=== PATIENT | male | born 1945 | race Caucasian/White ===

== ENCOUNTER 2017-01-22 09:13 | Emergency (ER) | payer MEDICARE ==
[2017-01-22 09:57] VITALS: BP 165/82
--- NOTE | 2017-01-22 09:57 | UC ---
Respiratory Complaint HPI - HPI Summary HPI Summary: cough and congestion for 4 days. no fever. right chest pain with cough. no sob at rest. - History of Current Complaint Chief Complaint: UCRespiratory Stated Complaint: COUGH,CHEST CONGESTION,BODY ACHES Time Seen by Provider: 01/22/17 09:31 Hx Obtained From: Patient Onset/Duration: Gradual Onset, Lasting Days Timing: Constant Severity Initially: Mild Severity Currently: Moderate Character: Sputum Description: - green sputum. Associated Signs And Symptoms: Positive: Sinus Discomfort - she started with ST on day one.. Negative: Dyspnea, Fever, Chills, Wheezing, Hemoptysis, Calf Pain , Calf Swelling, Edema, URI, Nasal Congestion, Hoarseness - Risk Factors Pulmonary Embolism Risk Factors: Negative Cardiac Risk Factors: Negative Pseudomonas Risk Factors: Negative Tuberculosis Risk Factors: Negative - Allergies/Home Medications Allergies/Adverse Reactions: Allergies Allergy/AdvReac Type Severity Reaction Status Date / Time No Known Allergies Allergy Verified 01/22/17 09:38 Home Medications: Home Medications guaiFENesin ER TAB [Mucinex*] 600 mg PO BID PRN 01/22/17 [History Confirmed ] PMH/Surg Hx/FS Hx/Imm Hx Endocrine History Of: Denies: Diabetes, Thyroid Disease Cardiovascular History Of: Reports: Hypertension Denies: Cardiac Disorders Respiratory History Of: Reports: Bronchitis Denies: COPD, Asthma GI/ History Of: Denies: Ulcer - Surgical History Surgical History: Yes Surgery Procedure, Year, and Place: Left ankle pin in place,. prostate CA seeds ,. Brain gamma knife - Family History Known Family History: Positive: Unknown Negative: Diabetes, Respiratory Disease - Social History Lives: With Family Alcohol Use: Rare Substance Use Type: None Smoking Status (MU): Former Smoker Have You Smoked in the Last Year: No - Immunization History Most Recent Influenza Vaccination: June 2016 Most Recent Pneumonia Vaccination: June 2016 Hx Tetanus, Diphtheria Vaccination: Yes Vaccination Up to Date: Yes Review of Systems All Other Systems Reviewed And Are Negative: Yes Physical Exam Triage Information Reviewed: Yes Appearance: Well-Appearing, No Pain Distress, Well-Nourished Vital Signs: Initial Vital Signs Temp 97.7 F 01/22/17 09:32 Pulse 76 01/22/17 09:32 Resp 16 01/22/17 09:32 BP 165/82 01/22/17 09:32 Pulse Ox 100 01/22/17 09:32 Vital Signs Reviewed: Yes Eye Exam: Normal Eyes: Positive: Conjunctiva Clear. Negative: Conjunctiva Inflamed ENT Exam: Normal ENT: Positive: Normal ENT inspection, Hearing grossly normal, Pharynx normal. Negative: Pharyngeal erythema, Nasal congestion, Nasal drainage, TMs normal, TM bulging, TM dull, TM red, Tonsillar swelling, Tonsillar exudate, Trismus Neck exam: Normal Neck: Positive: Supple, Nontender, No Lymphadenopathy. Negative: Nuchal Rigidity, Tenderness @, Enlarged Nodes @ Respiratory Exam: Normal Respiratory: Positive: Chest non-tender, Lungs clear, Normal breath sounds, No respiratory distress, No accessory muscle use. Negative: Respiratory distress, Decreased breath sounds, Accessory muscle use, Crackles, Rhonchi, Stridor Cardiovascular Exam: Normal Cardiovascular: Positive: RRR, No Murmur, Pulses Normal Abdominal Exam: Normal Abdomen Description: Positive: Nontender, No Organomegaly Musculoskeletal Exam: Normal Musculoskeletal: Positive: Strength Intact, ROM Intact, No Edema Neurological Exam: Normal Neurological: Positive: Alert, Muscle Tone Normal, Fatigued Psychological Exam: Normal Psychological: Positive: Normal Response To Family Skin Exam: Normal Skin: Positive: rashes UC Diagnostic Evaluation - Laboratory O2 Sat by Pulse Oximetry: 100 Respiratory Course/Dx - Course Course Of Treatment: cough. Productive. he will start cough suppressants and z pack on day 10 if needed. - Differential Dx/Diagnosis Differential Diagnosis/HQI/PQRI: Airway Obstruction, Foreign Body, Aspiration, Asthma, Bronchitis, CHF, Pulmonary Edema, Exacerbation Of COPD, Influenza, Laryngitis, Lower Resp Infection, MRSA, Pneumothorax, Pulmonary Embolism, Sinusitis Provider Diagnoses: acute bronchitis. Discharge - Discharge Plan Condition: Good Disposition: HOME Prescriptions: Acetaminop/Codeine 30 MG TAB* [Tylenol/Codeine 30 MG TAB*] 1 tab PO Q8H PRN #20 tab MDD 3 PRN Reason: Cough Azithromyxin JEANA (NF) [Z-Jeana (Zithromax) 250 mg tabs #6] 2 tab PO .TODAY, THEN 1 DAILY #6 tab Benzonatate CAP* [Tessalon 100 MG CAP*] 100 mg PO BID PRN #20 cap PRN Reason: Cough Patient Education Materials: Acute Bronchitis (ED) Referrals: Hardeep Morales MD [Primary Care Provider] - If Needed
== END 2017-01-22 10:05 | disposition home or self-care (01) ==
LOC: UCCORT 09:13
DX: J20.9 Acute bronchitis, unspecified (principal); Z87.891 Personal history of nicotine dependence
CPT/HCPCS: 99212; G0463

== ENCOUNTER 2018-05-28 09:53 | Emergency (ER) | payer MEDICARE ==
[2018-05-28 10:22] VITALS: BP 165/95
--- NOTE | 2018-05-28 10:46 | UC ---
Back Pain HPI - HPI Summary HPI Summary: left lower back pain x 3 days pain is sharp / shooting , radiating to left leg/ thigh increase pain with sitting , better, with standing and walking no fever, no chills, , no urinary sx - History of Current Complaint Chief Complaint: UCBackPain Stated Complaint: BACK PAIN *3DAYS Time Seen by Provider: 05/28/18 10:20 Hx Obtained From: Patient Onset/Duration: Gradual Onset, Lasting Days - 3, Still Present Timing: Constant, Lasting Days - 3 Severity Initially: Moderate Severity Currently: Moderate Pain Intensity: 4 Pain Scale Used: 0-10 Numeric Back Pain: Is Discrete @ - left lower back Character: Sharp Aggravating Factor(s): Bending, Other - sitting Alleviating Factor(s): Rest, Other - walking Associated Signs And Symptoms: Negative: Swelling, Redness, Bruising, Fever, Weakness, Numbness, Tingling, Flank Pain, Weight Loss - Allergies/Home Medications Allergies/Adverse Reactions: Allergies Allergy/AdvReac Type Severity Reaction Status Date / Time No Known Allergies Allergy Verified 05/28/18 10:22 Home Medications: Home Medications Acetaminophen/Diphenhydramine [Tylenol Pm Ex-Strength Caplet] 2 each PO ONCE PRN 05/28/18 [History Confirmed 05/28/18] PMH/Surg Hx/FS Hx/Imm Hx - Additional Past Medical History Additional PMH: cancer of prostate 2003, brain Cardiovascular History: Hypertension - Surgical History Surgical History: Yes Surgery Procedure, Year, and Place: Left ankle pin in place,. prostate CA seeds ,. Brain gamma knife - Family History Known Family History: Positive: Unknown Negative: Diabetes, Respiratory Disease - Social History Alcohol Use: Rare Substance Use Type: None Smoking Status (MU): Former Smoker Type: Pipe Length of Time of Smoking/Using Tobacco: approx 10 yrs Have You Smoked in the Last Year: No When Did the Patient Quit Smoking/Using Tobacco: 1970s - Immunization History Most Recent Influenza Vaccination: FALL 2014 Most Recent Pneumonia Vaccination: FALL 2014 Hx Tetanus, Diphtheria Vaccination: Yes Vaccination Up to Date: Yes Review of Systems Constitutional: Negative Skin: Negative Eyes: Negative ENT: Negative Respiratory: Negative Cardiovascular: Negative Is Patient Immunocompromised?: No All Other Systems Reviewed And Are Negative: Yes Physical Exam Triage Information Reviewed: Yes Appearance: Well-Appearing, No Pain Distress, Well-Nourished Vital Signs: Initial Vital Signs Temp 97.8 F 05/28/18 10:14 Pulse 105 05/28/18 10:14 Resp 16 05/28/18 10:14 BP 165/95 05/28/18 10:14 Pulse Ox 98 05/28/18 10:14 Eye Exam: Normal Eyes: Positive: Conjunctiva Clear ENT: Positive: Normal ENT inspection, Hearing grossly normal, Pharynx normal Neck exam: Normal Neck: Positive: Supple, Nontender, No Lymphadenopathy Respiratory: Positive: Chest non-tender, Lungs clear, Normal breath sounds Cardiovascular: Positive: RRR, No Murmur, Pulses Normal Abdominal Exam: Normal Musculoskeletal: Positive: Other: - left lower back : no erythema, no swelling, + tenderness, pain with flexion Neurological Exam: Normal Skin Exam: Normal Back Pain Course/Dx - Differential Dx/Diagnosis Provider Diagnoses: sciatica Discharge - Sign-Out/Discharge Documenting (check all that apply): Patient Departure - Discharge Plan Condition: Stable Disposition: HOME Prescriptions: Cyclobenzaprine TAB* [Flexeril 10 MG TAB*] 10 mg PO BID PRN #20 tab PRN Reason: Pain Naproxen [Naproxen 500 mg tab] 500 mg PO BID #20 tablet. Patient Education Materials: Sciatica (ED) Referrals: Hardeep Morales MD [Primary Care Provider] - - Billing Disposition and Condition Condition: STABLE Disposition: Home
== END 2018-05-28 10:39 | disposition home or self-care (01) ==
LOC: UCCORT 09:53 → EDBD 09:53 → UCCORT 10:39
DX: M54.42 Lumbago with sciatica, left side (principal); I10 Essential (primary) hypertension; Z87.891 Personal history of nicotine dependence
CPT/HCPCS: 99212; G0463

== ENCOUNTER 2018-07-30 13:18 | Emergency (ER) | payer MEDICARE ==
[2018-07-30 14:12] VITALS: BP 168/99
--- NOTE | 2018-07-30 14:16 | UC ---
Throat Pain/Nasal Anthony HPI - HPI Summary HPI Summary: 72 y/o male presents to the urgent care c/o sore throat for the past 4 days. Pain w/ swallowing is 5/10. He has not taking anything to alleviate symptoms. He is concerned w/ strep since he recently came from vacation. Pt denies fever , nasal congestion, cough, SOB, chest pain, abdominal pain, N/V/D. He has Hx of HTN, but states his BP gets elevated when he sees the doctor. - History of Current Complaint Chief Complaint: UCRespiratory Stated Complaint: THROAT,FEVER Time Seen by Provider: 07/30/18 14:11 Hx Obtained From: Patient Onset/Duration: Gradual Onset, Lasting Days - 4 days, Still Present, Worse Since - today Severity: Moderate Pain Intensity: 5 Pain Scale Used: 0-10 Numeric Cough: None Associated Signs & Symptoms: Positive: Dysphagia - Epiglottits Risk Factors Epiglottis Risk Factors: Negative - Allergies/Home Medications Allergies/Adverse Reactions: Allergies Allergy/AdvReac Type Severity Reaction Status Date / Time No Known Allergies Allergy Verified 07/30/18 14:13 Home Medications: Home Medications Losartan Potassium 100 mg PO DAILY 07/30/18 [History Confirmed 07/30/18] PMH/Surg Hx/FS Hx/Imm Hx Previously Healthy: Yes Endocrine History: Dyslipidemia Cardiovascular History: Hypertension Other Neurological History: brain tumor, sciatica - Surgical History Surgical History: Yes Surgery Procedure, Year, and Place: Left ankle pin in place,. prostate CA seeds ,. Brain gamma knife - Family History Known Family History: Positive: Diabetes Negative: Respiratory Disease - Social History Lives: With Family Alcohol Use: Rare Substance Use Type: None Smoking Status (MU): Former Smoker Type: Pipe Length of Time of Smoking/Using Tobacco: approx 10 yrs Have You Smoked in the Last Year: No When Did the Patient Quit Smoking/Using Tobacco: 1970 - Immunization History Most Recent Influenza Vaccination: FALL 2014 Most Recent Pneumonia Vaccination: FALL 2014 Hx Tetanus, Diphtheria Vaccination: Yes Vaccination Up to Date: Yes Review of Systems Constitutional: Negative Skin: Negative Eyes: Negative ENT: Sore Throat Respiratory: Negative Cardiovascular: Negative Gastrointestinal: Negative Genitourinary: Negative Motor: Negative Neurovascular: Negative Musculoskeletal: Negative Neurological: Negative Psychological: Negative Is Patient Immunocompromised?: No All Other Systems Reviewed And Are Negative: Yes Physical Exam - Summary Physical Exam Summary: VITAL SIGNS: Reviewed. GENERAL: Patient is a well developed and nourished male who is sitting comfortable in the examining table. Patient is not in any acute respiratory distress. HEAD AND FACE: No signs of trauma. No ecchymosis, hematomas or skull depressions. No sinus tenderness. EYES: PERRLA, EOMI x 2, No injected conjunctiva, no nystagmus. No photophobia. EARS: Hearing grossly intact. Ear canals and tympanic membranes are within normal limits. MOUTH: Positive pharynx with erythema, exudates, palatal petechiae. B/L tonsillar enlargement with no exudate. Uvula in midline. NECK: Supple, trachea is midline, Positive anterior cervical lymphadenopathy, no JVD, no carotid bruit, no c-spine tenderness, neck with full ROM. No meningeal signs, no Kernig's or brudzinskis signs. CHEST: Symmetric, no tenderness at palpation LUNGS: Clear to auscultation bilaterally. No wheezing or crackles. CVS: Regular rate and rhythm, S1 and S2 present, no murmurs or gallops appreciated. ABDOMEN: Soft, non-tender. No signs of distention. No rebound no guarding, and no masses palpated. Bowel sounds are normal. EXTREMITIES: FROM in all major joints, no edema, no cyanosis or clubbing. NEURO: Alert and oriented x 3. No acute neurological deficits. Speech is normal and follows commands. SKIN: Dry and warm Triage Information Reviewed: Yes Vital Signs: Initial Vital Signs Temp 99.6 F 07/30/18 14:01 Pulse 108 07/30/18 14:01 Resp 20 07/30/18 14:01 BP 168/99 07/30/18 14:01 Pulse Ox 98 07/30/18 14:01 Throat Pain/Nasal Course/Dx - Course Course Of Treatment: 72 y/o male presents to the urgent care c/o sore throat for the past 4 days. Pain w/ swallowing is 5/10. He has not taking anything to alleviate symptoms. He is concerned w/ strep since he recently came from vacation. Pt denies fever, nasal congestion, cough, SOB, chest pain, abdominal pain, N/V/D. He has Hx of HTN, but states his BP gets elevated when he sees the doctor. Hx obtained. PT w/ pharyngitis on examination.Rapid strep ordered, result: negative. Viral pharyngitis.Pt Rx ibuprofen PO to alleviates symptoms of pain and swelling. Advised on hand washing to avoid spreading. Pt advised to rest, eat well and avoid strenuous exercise. If symptoms do not improve or worsen advised to return to the urgent care or f/u with PCP for further evaluation and treatment. Pt's BP is elevated today advised to decrease salt in diet, monitor BP and f/u with PCP for further management. D/C instructions explained. Pt understood and agreed w/ plan of care. - Differential Dx/Diagnosis Differential Diagnosis/HQI/PQRI: Influenza, Laryngitis, Pharyngitis, Sinusitis, URI Provider Diagnoses: 1- Viral pharyngitis. 2- Uncontrolled HTN Discharge - Sign-Out/Discharge Documenting (check all that apply): Patient Departure - D/C home All imaging exams completed and their final reports reviewed: No Studies - Discharge Plan Condition: Stable Disposition: HOME Patient Education Materials: Pharyngitis (ED), Low-Sodium Diet (ED) Referrals: Hardeep Morales MD [Primary Care Provider] - 3 Days Additional Instructions: 1-Please take ibuprofen PO q6-8hrs prn as instructed after meals to alleviate pain and swelling. Increase fluid intake, eat well, rest and avoid strenuous exercise 2-If symptoms do not improve or worsen please return to the urgent care or f/u with your PCP in 3 days for further evaluation and treatment. 3-Your BP is elevated today. please decrease salt in your diet, monitor BP and if it continues to be elevated please f/u with your PCP for further management - Billing Disposition and Condition Condition: STABLE Disposition: Home
[2018-07-30] MEDS ORDERED: Ibuprofen TAB* 600 MG PO ONE (14:30)
--- NOTE | 2018-07-31 10:58 | UC ---
- Progress Note Progress Note: no x-ray 07/30/18 Discharge - Sign-Out/Discharge Documenting (check all that apply): Patient Departure All imaging exams completed and their final reports reviewed: No Studies - Discharge Plan Condition: Stable Disposition: HOME Patient Education Materials: Pharyngitis (ED), Low-Sodium Diet (ED) Referrals: Hardeep Morales MD [Primary Care Provider] - 3 Days Additional Instructions: 1-Please take ibuprofen PO q6-8hrs prn as instructed after meals to alleviate pain and swelling. Increase fluid intake, eat well, rest and avoid strenuous exercise 2-If symptoms do not improve or worsen please return to the urgent care or f/u with your PCP in 3 days for further evaluation and treatment. 3-Your BP is elevated today. please decrease salt in your diet, monitor BP and if it continues to be elevated please f/u with your PCP for further management - Billing Disposition and Condition Condition: STABLE Disposition: Home
== END 2018-07-30 14:45 | disposition home or self-care (01) ==
LOC: UCCORT 13:18
DX: J02.8 Acute pharyngitis due to other specified organisms (principal); I10 Essential (primary) hypertension; Z87.891 Personal history of nicotine dependence
CPT/HCPCS: 87651; 99212; A9270-GY; G0463

== ENCOUNTER 2018-08-01 08:25 | Emergency (ER) | payer MEDICARE ==
--- NOTE | 2018-08-01 09:06 | UC ---
Respiratory Complaint HPI - HPI Summary HPI Summary: The patient is a 72-year-old male that presents here with a 5 day history of sore throat. He was seen here a few days ago and had a negative strep test. The last 48 hours she has had markedly worsening symptoms including cough ,fever , chills, myalgias and headache. He was recently on a cruise. He had a flu shot 2 weeks ago. He has had pneumonia in the past. He also states that he was up every hour last night urinating. He has no dysuria. - History of Current Complaint Chief Complaint: UCRespiratory Stated Complaint: COUGH CONGESTION BODYACHES Time Seen by Provider: 08/01/18 08:56 Hx Obtained From: Patient Onset/Duration: Gradual Onset, Lasting Days Timing: Constant Severity Initially: Moderate Pain Intensity: 4 Pain Scale Used: 0-10 Numeric Character: Cough: Nonproductive Aggravating Factors: Nothing Alleviating Factors: OTC Meds Associated Signs And Symptoms: Positive: Fever, Chills, Nasal Congestion, Sinus Discomfort - Allergies/Home Medications Allergies/Adverse Reactions: Allergies Allergy/AdvReac Type Severity Reaction Status Date / Time No Known Allergies Allergy Verified 07/30/18 14:13 PMH/Surg Hx/FS Hx/Imm Hx Previously Healthy: Yes Endocrine History: Diabetes - Pre....checks his BS at home, Dyslipidemia Cardiovascular History: Hypertension Respiratory History: Pneumonia Cancer History: Prostate Cancer - Surgical History Surgical History: Yes Surgery Procedure, Year, and Place: Left ankle pin in place,. prostate CA seeds ,. Brain gamma knife - Family History Known Family History: Positive: Unknown, Hypertension, Diabetes Negative: Respiratory Disease - Social History Alcohol Use: None Substance Use Type: None Smoking Status (MU): Former Smoker Type: Pipe Length of Time of Smoking/Using Tobacco: Daily Pipe Use x 10 Years Have You Smoked in the Last Year: No When Did the Patient Quit Smoking/Using Tobacco: - Immunization History Most Recent Influenza Vaccination: FALL 2014 Most Recent Pneumonia Vaccination: FALL 2014 Hx Tetanus, Diphtheria Vaccination: Yes Vaccination Up to Date: Yes Review of Systems Constitutional: Fever, Chills, Fatigue Skin: Negative Eyes: Negative ENT: Sore Throat - better, Nasal Discharge, Sinus Congestion Respiratory: Cough Cardiovascular: Negative Gastrointestinal: Negative Genitourinary: Frequency Motor: Negative Neurovascular: Negative Musculoskeletal: Myalgia Neurological: Headache Psychological: Negative All Other Systems Reviewed And Are Negative: Yes Physical Exam Triage Information Reviewed: Yes Appearance: Well-Appearing, No Pain Distress, Well-Nourished Vital Signs: Initial Vital Signs Temp 99.3 F 08/01/18 08:38 Pulse 122 08/01/18 08:38 Resp 16 08/01/18 08:38 BP 131/81 08/01/18 08:38 Pulse Ox 97 08/01/18 08:38 Vital Signs Reviewed: Yes Eyes: Positive: Conjunctiva Clear ENT: Positive: Hearing grossly normal, Pharyngeal erythema, Nasal congestion. Negative: Nasal drainage, Tonsillar swelling, Tonsillar exudate, Trismus, Muffled voice, Hoarse voice, Sinus tenderness, Uvula midline Neck: Positive: Supple, Nontender, No Lymphadenopathy Respiratory: Positive: Lungs clear, Normal breath sounds, No respiratory distress, No accessory muscle use Cardiovascular: Positive: RRR, No Murmur, Tachycardia Abdomen Description: Positive: Nontender, No Organomegaly, Soft Bowel Sounds: Positive: Present Musculoskeletal: Positive: ROM Intact, No Edema Neurological: Positive: Alert Psychological Exam: Normal Skin Exam: Normal UC Diagnostic Evaluation - Laboratory O2 Sat by Pulse Oximetry: 97 - normal/not hypoxic Diagnostic Studies Comment: UA: +++glucose - Radiology Xray Interpretation: No Acute Changes Radiology Interpretation Completed By: Radiologist Respiratory Course/Dx - Differential Dx/Diagnosis Provider Diagnoses: acute bronchitis Discharge - Sign-Out/Discharge Documenting (check all that apply): Patient Departure All imaging exams completed and their final reports reviewed: Yes - Discharge Plan Condition: Stable Disposition: HOME Prescriptions: Azithromycin TAB* [Zithromax TAB*] 250 mg PO DAILY #6 tab Referrals: Hardeep Morales MD [Primary Care Provider] - 4 Days Additional Instructions: I suggest you check your blood sugar today recheck for new or worsening symptoms - Billing Disposition and Condition Condition: STABLE Disposition: Home
--- NOTE | 2018-08-01 09:23 | RAD ---
INDICATION: Fever and cough. COMPARISON: Comparison is made to prior study from May 30, 2015. TECHNIQUE: Dual-energy PA and lateral views of the chest were obtained. FINDINGS: The heart is within normal limits in size. Mediastinal and hilar contours appear within normal limits. The lungs are hyperinflated and clear. No pleural effusion is seen. IMPRESSION: NO EVIDENCE FOR ACTIVE CARDIOPULMONARY DISEASE.
[2018-08-01 09:35] VITALS: BP 122/74
== END 2018-08-01 09:55 | disposition home or self-care (01) ==
LOC: UCCORT 08:25
DX: J20.9 Acute bronchitis, unspecified (principal); R73.03 Prediabetes; I10 Essential (primary) hypertension
CPT/HCPCS: 71046; 81003; 99212; G0463

== ENCOUNTER 2018-08-09 10:25 | Emergency (ER) | payer MEDICARE ==
[2018-08-09 12:31] VITALS: BP 159/86
--- NOTE | 2018-08-09 12:44 | UC ---
Respiratory Complaint HPI - HPI Summary HPI Summary: Pt presents with c/ cough that has persisted X 3 weeks. Pt was seen here 07/30 and 08/01. Was given RX for z-pac on 08/01. States he is feeling better but cough remains and is worse in recumbent position - History of Current Complaint Chief Complaint: UCRespiratory Stated Complaint: COUGH Time Seen by Provider: 08/09/18 12:34 Hx Obtained From: Patient Onset/Duration: Sudden Onset, Lasting Weeks, Still Present Timing: Intermittent Episodes Severity Initially: Mild Severity Currently: None Pain Intensity: 0 Character: Cough: Nonproductive Aggravating Factors: Deep Breaths, Recumbent Position Alleviating Factors: Nothing Associated Signs And Symptoms: Positive: URI - Risk Factors Pulmonary Embolism Risk Factors: Negative Cardiac Risk Factors: Elevated Lipids Pseudomonas Risk Factors: Negative Tuberculosis Risk Factors: Negative - Allergies/Home Medications Allergies/Adverse Reactions: Allergies Allergy/AdvReac Type Severity Reaction Status Date / Time No Known Allergies Allergy Verified 08/09/18 12:27 PMH/Surg Hx/FS Hx/Imm Hx Previously Healthy: Yes Endocrine History: Dyslipidemia - Surgical History Surgical History: Yes Surgery Procedure, Year, and Place: Left ankle pin in place,. prostate CA seeds ,. Brain gamma knife - Family History Known Family History: Positive: Unknown, Hypertension, Diabetes Negative: Respiratory Disease - Social History Occupation: Retired Lives: With Family Alcohol Use: None Substance Use Type: None Smoking Status (MU): Light Every Day Tobacco Smoker Type: Pipe Length of Time of Smoking/Using Tobacco: Daily Pipe Use x 10 Years Have You Smoked in the Last Year: No When Did the Patient Quit Smoking/Using Tobacco: - Immunization History Most Recent Influenza Vaccination: FALL 2014 Most Recent Pneumonia Vaccination: FALL 2014 Hx Tetanus, Diphtheria Vaccination: Yes Vaccination Up to Date: Yes Review of Systems Constitutional: Negative Skin: Negative Eyes: Negative ENT: Negative Respiratory: Cough Cardiovascular: Negative Gastrointestinal: Negative Genitourinary: Negative Motor: Negative Neurovascular: Negative Musculoskeletal: Negative Neurological: Negative Psychological: Negative Is Patient Immunocompromised?: No All Other Systems Reviewed And Are Negative: Yes Physical Exam Triage Information Reviewed: Yes Appearance: Well-Appearing Vital Signs: Initial Vital Signs Temp 97.6 F 08/09/18 12:24 Pulse 88 08/09/18 12:24 Resp 18 08/09/18 12:24 BP 159/86 08/09/18 12:24 Pulse Ox 100 08/09/18 12:24 Vital Signs Reviewed: Yes Eye Exam: Normal ENT Exam: Normal Dental Exam: Normal Neck exam: Normal Respiratory Exam: Normal Respiratory: Positive: Normal breath sounds Cardiovascular Exam: Normal Musculoskeletal Exam: Normal Neurological Exam: Normal Psychological Exam: Normal Skin Exam: Normal Diagnostic Evaluation - Laboratory O2 Sat by Pulse Oximetry: 100 Respiratory Course/Dx - Differential Dx/Diagnosis Differential Diagnosis/HQI/PQRI: Bronchitis Provider Diagnoses: post viral cough Discharge - Sign-Out/Discharge Documenting (check all that apply): Patient Departure All imaging exams completed and their final reports reviewed: No Studies - Discharge Plan Condition: Stable Disposition: HOME Prescriptions: Albuterol HFA INHALER* [Ventolin HFA Inhaler*] 1 - 2 puff INH Q6H PRN #1 mdi PRN Reason: Sob/Wheezing Benzonatate CAP* [Tessalon 100 MG CAP*] 100 mg PO Q8H PRN #30 cap PRN Reason: Cough predniSONE TAB* [Deltasone 20 MG TAB*] 20 mg PO DAILY #4 tab Patient Education Materials: Acute Cough (ED) Referrals: Hardeep Morales MD [Primary Care Provider] - 5 Days - Billing Disposition and Condition Condition: STABLE Disposition: Home - Attestation Statements Provider Attestation: I was available for consult. This patient was seen by the [facility]. The patient was not presented to, seen by, or examined by me. -Delfin
== END 2018-08-09 12:51 | disposition home or self-care (01) ==
LOC: UCCORT 10:25
DX: R05 Cough (principal); F17.210 Nicotine dependence, cigarettes, uncomplicated
CPT/HCPCS: 99212; G0463